=== PATIENT | female | born 1970 | race Caucasian/White ===

== ENCOUNTER 2022-09-05 20:03 | Emergency (ER) | payer OTHER ==
[~2022-09-05] VITALS: Ht 162.6 cm; Wt 73.5 kg
[2022-09-05 20:33] VITALS: BP_SYST 106; PULSE 72; RESP 17; TEMP 98; O2SAT 99
--- NOTE | 2022-09-05 20:39 | NUR ---
Patient triaged and placed in waiting room. VSS and patient appears in no acute distress at this time. Accompanied by , awaiting available bed, and MD notified of need for MSE.
--- NOTE | 2022-09-05 22:30 | NUR ---
Patient ambulated to Chair 1 in stable condition.
--- NOTE | 2022-09-05 23:10 | NUR ---
Dr. Jones at chairside discussing diagnostic & Tx plan. MD will discharge patient home.
[2022-09-05 23:25] VITALS: BP_SYST 108; PULSE 71; RESP 16; TEMP 98.1; O2SAT 99
--- NOTE | 2022-09-05 23:25 | NUR ---
DCI given to patient. Patient acknowledges & understand DCI. Patient ambulated OTD in stable condition.
== END 2022-09-05 23:25 | disposition home or self-care (01) ==
LOC: SED 20:03
DX: S90.112A Contusion of left great toe without damage to nail, initial encounter (principal); Z88.0 Allergy status to penicillin; Z79.899 Other long term (current) drug therapy; W20.8XXA Other cause of strike by thrown, projected or falling object, initial encounter; Y93.89 Activity, other specified; Y92.89 Other specified places as the place of occurrence of the external cause; Y99.8 Other external cause status
CPT/HCPCS: 99283